=== PATIENT | female | born 1965 | race Two or more races ===

== ENCOUNTER → 2017-01-13 | Outpatient (REF) | payer OTHER | LOC: M SMT 17:10 | PROVIDERS: ATTEND Nurse Practitioner Women's Health | DX: R31.29 Other microscopic hematuria (principal) ==

== ENCOUNTER → 2022-09-09 | Outpatient (CLI) | payer BC, OTHER | LOC: M RAD 11:59 | PROVIDERS: ATTEND Registered Nurse | DX: I67.1 Cerebral aneurysm, nonruptured (principal); M79.601 Pain in right arm ==